=== PATIENT | male | born 1955 | race Caucasian/White ===

== ENCOUNTER 2017-09-09 11:50 | Emergency (ER) | payer BC ==
[~2017-09-09] VITALS: Ht 182.9 cm; Wt 85.0 kg
[~2017-09-09 11:50] MED LIST: ALPR.5 PO; ASCO100029 PO; BUTA1CAP PO; FERR140T PO; LIBRAX PO; LOVA20TA PO; NEXI40CA PO; TAMS5CAP PO
[2017-09-09 11:53] VITALS: BP 153/83; PULSE 77; RESP 17; TEMP 98.2; O2SAT 98
[2017-09-09] MEDS ORDERED: CEPH-460 PO (12:18)
--- NOTE | 2017-09-09 12:18 | PD ---
HPI Chief Complaint: Laceration/Skin Injury Time Seen by Provider: 12:11 Travel History International Travel<30 days: No Contact w/Intl Traveler<30days: No Traveled to known affect area: No History of Present Illness HPI 62-year-old male complains of left third finger laceration. Patient states that it happened at 8:00 last night. Patient stated he accidentally cut his left third finger on a sharp object. Patient denies any other injury. Patient states that he has intermittent bleeding from the left third finger since then. Patient is up-to-date with TD booster. PFS Past Medical History Asthma: Yes Anxiety: Yes High Cholesterol: Yes Diminished Hearing: No Diverticulitis: Yes Gastrointestinal Disorders: Yes (COLON POLYPS) Headaches: Yes Migraines: Yes Tetanus Vaccination: < 5 Years ?: Not Social History Alcohol Use: Yes (OCCASIONALLY) Tobacco Use: No Substance Use: No Allergies-Medications (Allergen,Severity, Reaction): Coded Allergies: No Known Allergies (Verified Adverse Reaction, Unknown, 09/09/17) Reported Meds & Prescriptions Reported Meds & Active Scripts Active Reported Librax (Chlordiazepoxide/Clidinium) 5-2.5 Mg Cap 1 Cap PO DAILY Vitamin C (Ascorbic Acid) 1,000 Mg Tablet.er 1 Tab PO DAILY Flomax (Tamsulosin HCl) 0.4 Mg Cap 1 Cap PO HS Lovastatin 20 Mg Tab 2 Tab PO DAILY Ferrous Sulfate ER (Ferrous Sulfate) 140 Mg Tab 1 Tab PO DAILY Review of Systems General / Constitutional: No: Fever Eyes: No: Visual changes HENT: No: Headaches Cardiovascular: No: Chest Pain or Discomfort Respiratory: No: Shortness of Breath Gastrointestinal: No: Abdominal Pain Genitourinary: No: Dysuria Musculoskeletal: No: Pain Skin: No Rash Neurologic: No: Weakness Psychiatric: No: Depression Endocrine: No: Polydipsia Hematologic/Lymphatic: No: Easy Bruising Physical Exam Narrative GENERAL: Well-nourished, well-developed patient. SKIN: Focused skin assessment warm/dry. HEAD: Normocephalic. EYES: No scleral icterus. No injection or drainage. NECK: Supple, trachea midline. No JVD or lymphadenopathy. CARDIOVASCULAR: Regular rate and rhythm without murmurs, gallops, or rubs. RESPIRATORY: Breath sounds equal bilaterally. No accessory muscle use. GASTROINTESTINAL: Abdomen soft, non-tender, nondistended. MUSCULOSKELETAL: No cyanosis, or edema. BACK: Nontender without obvious deformity. No CVA tenderness. Patient has a small flap avulsion laceration by 1.5 cm long distal phalanx of the left third finger. Minor bleeding noted. Data Data Last Documented VS Vital Signs Date Time Temp Pulse Resp B/P (MAP) Pulse Ox O2 Delivery O2 Flow Rate FiO2 09/09/17 11:53 98.2 77 17 153/83 (106) 98 MDM Medical Decision Making Medical Screen Exam Complete: Yes Emergency Medical Condition: Yes Differential Diagnosis Differential diagnosis including laceration left third finger Narrative Course 62-year-old male with left third finger laceration Procedures Procedure Narrative Saline wash. Steri-Strips applied. Diagnosis Primary Impression: Finger laceration Qualified Codes: S61.213A - Laceration without foreign body of left middle finger without damage to nail, initial encounter Patient Instructions: General Instructions Additional Instructions: Keflex as directed. Keep the wound clean and dry for 10 days. Follow-up with local physician. Med/Other Pt SpecificInfo: Prescription(s) given Scripts Cephalexin (Keflex) 500 Mg Capsule 500 MG PO TID for Infection, #15 CAP 0 Refills Prov: Robin Cat MD 09/09/17 Disposition: 01 DISCHARGE HOME Condition: Stable Robin Cat MD Sep 09, 2017 12:18
== END 2017-09-09 12:37 | disposition home or self-care (01) ==
LOC: PHEFT 11:50
DX: S61.213A Laceration without foreign body of left middle finger without damage to nail, initial encounter (principal); W26.9XXA Contact with unspecified sharp object(s), initial encounter
CPT/HCPCS: 99283